=== PATIENT | female | born 1990 | race Caucasian/White ===

== ENCOUNTER → 2022-08-11 | Outpatient (CLI) | payer OTHER ==
[2022-08-11 09:54] LABS: Eosinophils # (auto) 0.1 10 ^3/uL (0-0.8); Neutrophils % (auto) 73.5 % (37.0-80.0)
[2022-08-11 09:58] LABS: Basophils # (auto) 0 10 ^3/uL (0-0.2); Basophils % (auto) 0.4 % (0.0-2.0); Eosinophils % (auto) 0.8 % (0.0-7.0); Hematocrit 33.8 % (36.0-46.0); Lymphocytes # (auto) 1.8 10 ^3/uL (0.4-5.4); Lymphocytes % (auto) 18.4 % (10.0-50.0); Mean Corpuscular Hemoglobin 26.5 pg (28.0-32.0); Mean Corpuscular Hgb Conc. 32.6 g/dL (32.0-36.0); Mean Corpuscular Volume 81.5 fL (80.0-100.0); Monocytes # (auto) 0.7 10 ^3/uL (0-1.3); Monocytes % (auto) 6.9 % (0.0-12.0); Nucleated Red Blood Cells % 0.1 %; Red Blood Cells 4.15 10^6/uL (4.0-5.20); Red Cell Distribution Width 14.1 % (11.8-14.3); White Blood Cell 9.5 10^3/uL (4.4-10.8)
[2022-08-11 10:46] LABS: Potassium 4.1 mmol/L (3.5-5.1)
[2022-08-11 10:56] LABS: Albumin 2.9 g/dL (3.4-5.0); BUN/Creatinine Ratio 14.3; Bilirubin, Total 0.6 mg/dL (0.2-1.0); Calcium 8.8 mg/dL (8.5-10.1); Total Protein 6.8 g/dL (6.4-8.2)
== END | disposition home or self-care (01) ==
LOC: LAB 09:31
PROVIDERS: ATTEND Nurse Practitioner Family
DX: O99.283 Endocrine, nutritional and metabolic diseases complicating pregnancy, third trimester (principal); Z3A.36 36 weeks gestation of pregnancy; E03.9 Hypothyroidism, unspecified
CPT/HCPCS: 36415; 80053; 84439; 84443; 85025

== ENCOUNTER 2022-08-28 12:50 | Inpatient (IN) | payer OTHER ==
[~2022-08-28] VITALS: Ht 154.9 cm; Wt 93.4 kg
[2022-08-28] MEDS ORDERED: PHISODERM TOP SOLN 240ML BTL TOP PRN (13:15)
[2022-08-28] MEDS ORDERED: BUTORPHANOL TARTRATE 2 MG/1 ML VIAL IV PRN ×2 (13:15)
[2022-08-28] MEDS ORDERED: LIDOCAINE 2%HCL (LOCAL ANESTH.) INJ 10ml MDV IJ PRN (13:15)
[2022-08-28] MEDS ORDERED: PROMETHAZINE HCL 25 MG/ML 1ML IV PRN (13:15)
[2022-08-28] MEDS ORDERED: WITCH HAZEL-GLYCERIN PAD TOP PRN (13:15)
[2022-08-28] MEDS ORDERED: DERMOPLAST 60ML BOTTLE TOP PRN (13:15)
[2022-08-28] MEDS ORDERED: LACTATED RINGER'S 1,000 ML IV SCH (13:15)
[2022-08-28] MEDS ORDERED: METHYLERGONOVINE MALEATE 0.2 MG/ML AMP IM PRN (13:45)
[2022-08-28] MEDS ORDERED: miSOPROStol 100 mcg TAB PR PRN (13:45)
[2022-08-28] MEDS ORDERED: LACT. RINGERS/OXYTOCIN 20UNITS 500 ML IV ONE ×3 (13:45→14:45)
[2022-08-28] MEDS ORDERED: PENICILLIN G POT 5MIL/D5 50ML 50 ML IV ONE ×2 (13:45→14:00)
[2022-08-28] MEDS ORDERED: CARBOPROST TROMETHAMINE 250 MCG/1ML VIAL IM PRN (13:45)
[2022-08-28] MEDS ORDERED: miSOPROStol 100 mcg TAB SL PRN (13:45)
[2022-08-28 13:51] LABS: Eosinophils # (auto) 0.1 10 ^3/uL (0-0.8); Hemoglobin 10.5 g/dL (12.2-16.2); Lymphocytes # (auto) 1.8 10 ^3/uL (0.4-5.4); Mean Corpuscular Hemoglobin 25.9 pg (28.0-32.0); White Blood Cell 8.2 10^3/uL (4.4-10.8)
[2022-08-28 13:53] LABS: Basophils # (auto) 0 10 ^3/uL (0-0.2); Basophils % (auto) 0.4 % (0.0-2.0); Eosinophils % (auto) 0.7 % (0.0-7.0); Hematocrit 32.5 % (36.0-46.0); Lymphocytes % (auto) 21.6 % (10.0-50.0); Mean Corpuscular Hgb Conc. 32.3 g/dL (32.0-36.0); Mean Corpuscular Volume 80.1 fL (80.0-100.0); Monocytes # (auto) 0.6 10 ^3/uL (0-1.3); Monocytes % (auto) 7.2 % (0.0-12.0); Neutrophils # (auto) 5.7 10 ^3/uL (1.6-8.6); Neutrophils % (auto) 70.1 % (37.0-80.0); Red Blood Cells 4.05 10^6/uL (4.0-5.20); Red Cell Distribution Width 14.6 % (11.8-14.3)
[2022-08-28 14:08] LABS: INR 0.88 (0.9-1.15); Partial Thromboplastin Time 23.8 sec (24.6-33.4)
[2022-08-28 14:10] LABS: Albumin 2.8 g/dL (3.4-5.0); BUN/Creatinine Ratio 12.9; Calcium 8.3 mg/dL (8.5-10.1); Potassium 3.5 mmol/L (3.5-5.1)
[2022-08-28 14:13] LABS: Bilirubin, Total 0.3 mg/dL (0.2-1.0); Total Protein 6.5 g/dL (6.4-8.2)
[2022-08-28] MEDS ORDERED: NALOXONE HCL 0.4 MG/ML VIAL ONE (14:23)
[2022-08-28] MEDS ORDERED: ONDANSETRON ODT 4 MG TAB PO PRN (14:45)
[2022-08-28] MEDS: IBUPROFEN 800 MG TAB PO SCH ×3 (17:22→23:44)
[2022-08-28] MEDS ORDERED: PENICILLIN G POTASSIUM 2,500,000 UNITS in D5W 5% 50 ML IV SCH (18:00)
[2022-08-28 18:14] LABS: Urine WBC None Seen /hpf (0 - 5)
[2022-08-28 18:33] LABS: Urine Bacteria NONE SEEN /hpf (None Seen); Urine Blood 3+ /uL (Negative)
[2022-08-28 18:37] LABS: Amphetamine Screen, Urine NEGATIVE (NEGATIVE); Barbiturate Scree,Urine NEGATIVE (NEGATIVE); Benzodiazephine Screen, Urine NEGATIVE (NEGATIVE); Cannabinoid Screen, Urine NEGATIVE (NEGATIVE); Cocaine Screen, Urine NEGATIVE (NEGATIVE); Opiate Scree,Urine NEGATIVE (NEGATIVE); Phencyclidine Screen, Urine NEGATIVE (NEGATIVE)
[2022-08-28 19:00] VITALS: BP 116/56
[2022-08-28] MEDS ORDERED: DOCUSATE SOD 100 MG CAP PO SCH (22:00)
[2022-08-28] MEDS ORDERED: DIPHENOXYLATE W/ATROPINE 2.5 MG TAB PO SCH (22:00)
[2022-08-28 23:30] VITALS: BP 130/73
[2022-08-29] MEDS: ACETAMINOPHEN 325 MG TAB PO PRN ×3 (01:52→10:22)
[2022-08-29 03:00] VITALS: BP 130/78
[2022-08-29 05:06] LABS: RPR Non Reactive (Non Reactive)
[2022-08-29] MEDS: IBUPROFEN 800 MG TAB PO SCH ×2 (06:26→18:00)
[2022-08-29 07:00] VITALS: BP 128/74
[2022-08-29] MEDS ORDERED: BISACODYL 10 MG RECT SUPP PR PRN (10:00)
[2022-08-29 11:00] VITALS: BP 130/72
[2022-08-29 15:00] VITALS: BP 128/74
[2022-08-31 03:07] LABS: Rubella Antibodies, IgG 1.27 index (Immune >0.99)
== END 2022-08-29 18:35 | disposition home or self-care (01) | DRG 807 ==
LOC: LDRP 12:50 → OBSVTOIN 12:55 → LDRP 19:23
PROVIDERS: ADMIT Obstetrics & Gynecology; ATTEND Obstetrics & Gynecology
PROC: 10E0XZZ Delivery of Products of Conception, External Approach (ICD-10-PCS; principal; 2022-08-28)
PROC: 10907ZC Drainage of Amniotic Fluid, Therapeutic from Products of Conception, Via Natural or Artificial Opening (ICD-10-PCS; 2022-08-28)
PROC: 0HQ9XZZ Repair Perineum Skin, External Approach (ICD-10-PCS; 2022-08-28)
DX: O70.0 First degree perineal laceration during delivery (principal); Z37.0 Single live birth; Z20.822 Contact with and (suspected) exposure to COVID-19; Z3A.39 39 weeks gestation of pregnancy
CPT/HCPCS: 36415; 59025; 59409; 76805; 80053; 80307; 81001; 85025; 85610; 85730; 86592; 86703; 86762; 86850; 86900; 86901; 87340; 94760; 96360; 96361; 96365; 96366; G0378; J2001; J2540; J2590; J7060